=== PATIENT | female | born 1995 | race Caucasian/White ===

== ENCOUNTER 2021-03-20 09:06 | Inpatient (IN) | payer BC ==
[2021-04-09] MEDS ORDERED: Ondansetron 4 MG/2 ML SDV IVPUSH PRN (07:38)
[2021-04-09] MEDS ORDERED: Sodium Chloride 0.9% 10 ML Syringe FLUSH PRN (07:38)
[2021-04-09] MEDS ORDERED: Tranexamic Acid 1,000 MG in Sodium Chloride 0.9% 100 ML IV PRN (07:38)
[2021-04-09] MEDS ORDERED: Naloxone 2 MG/2 ML Syringe IVPUSH PRN (07:38)
[2021-04-09] MEDS ORDERED: Carboprost Tromethamine 250 MCG/1 ML Amp IM PRN (07:38)
[2021-04-09] MEDS ORDERED: Lidocaine 1% 30 ML SDV INJECT PRN (07:38)
[2021-04-09] MEDS ORDERED: Misoprostol 400 MCG (4 X 100 MCG TAB) RECTAL PRN (07:38)
[2021-04-09] MEDS ORDERED: fentaNYL 100 MCG/2 ML SDV IVPUSH PRN (07:38)
[2021-04-09] MEDS ORDERED: Methylergonovine 0.2 MG/1 ML Amp IM PRN (07:38)
[2021-04-09] MEDS ORDERED: Lactated Ringers 1,000 ML IV ONE (07:38)
[2021-04-09] MEDS ORDERED: Promethazine 25 MG/ML SDV IM PRN (07:38)
[2021-04-09] MEDS ORDERED: ePHEDrine 50 MG/ML SDV IVPUSH PRN (07:38)
[2021-04-09] MEDS ORDERED: Oxytocin/Normal Saline 30 UNIT/500 ML BAG IV SCH ×2 (07:45)
[2021-04-09] MEDS ORDERED: ceFAZolin 2 GM in Premix Bag 1 BAG IV ONE (08:00)
[2021-04-09] MEDS ORDERED: Misoprostol 50 MCG (1/2 of 100 MCG) Tab VAG ONE (08:30)
[2021-04-09] MEDS: ceFAZolin 1 GM in Sodium Chloride 0.9% 50 ML IV SCH (16:53)
[2021-04-09] MEDS ORDERED: hydrOXYzine HCl 25 MG Tab PO ONE (16:59)
[2021-04-09] MEDS: Lactated Ringers 1,000 ML IV SCH (17:13)
[2021-04-09] MEDS: Misoprostol 25 MCG (1/4 of 100 MCG) Tab VAG PRN (20:20)
[2021-04-10] MEDS: ceFAZolin 1 GM in Sodium Chloride 0.9% 50 ML IV SCH ×3 (00:17→16:19)
[2021-04-10] MEDS: Acetaminophen 325 MG Tab PO PRN (00:30)
[2021-04-10] MEDS: Misoprostol 25 MCG (1/4 of 100 MCG) Tab VAG PRN ×3 (00:32→09:23)
[2021-04-10] MEDS: Lactated Ringers 1,000 ML IV SCH ×2 (08:36→17:41)
--- NOTE | 2021-04-10 10:44 | PN ---
DATE: 04/10/2021 SUBJECTIVE: Day of induction #2 in a 25-year-old 1, para 0, now at 39- 3/7 weeks' gestation, admitted to the hospital for induction of labor secondary to factor V Leiden deficiency and on anticoagulation and needing to time stopping of the heparin with timing of delivery. She is group B strep positive and receiving Ancef for prophylaxis. She has anemia of and a personal history of DVT. Otherwise, has been unremarkable. Induction initiated yesterday with a 50 mcg dose of Cytotec and there were too many contractions to continue dosing every 4 hours, so we had to wait about 8 hours for the subsequent 25 mcg doses. She has had 4 total doses of Cytotec and is starting to make some cervical change. Nurses report that she also has some constipation and she was willing to drink some cranberry juice, but the patient has refused prune juice, enemas, and other constipation therapies. OBJECTIVE: Vital Signs: BP 124/64, pulse of 78, temperature is 96.9. Heart: Regular without murmur. Lungs: Clear bilaterally. Abdomen: Gravid. heart tones 125 beats per minute at baseline, reactive tracing. [place] showing no regular contractions at this time. Cervix 1+ cm, 70% effaced, anterior position now per nurse's report. Extremities: 1+ edema bilaterally also noted in the hands as well as the feet. ASSESSMENT: 1. 39-3/7 weeks' intrauterine . 2. High-risk due to factor V Leiden, on heparin. 3. Blood type O positive, rubella immune. 4. Group B strep positive, being treated with Ancef in labor. 5. Personal history of deep venous thrombosis. 6. Anemia of . PLAN: Continue subsequent Cytotec doses at this time. I will try to get her cervix more ripe and then get her going on some Pitocin and followed by artificial rupture of membranes with active labor management. Anticipating intrathecal when the time comes for pain relief and hoping for vaginal delivery. Discussed with the patient enemas or at least some warm prune juice with butter and milk of magnesia to help her have a bowel movement and will see she will be more open to that as the day goes on. [facility] /[id number] MTDIsauro
[2021-04-10] MEDS ORDERED: Nalbuphine 10 MG/1 ML Vial IM ONE (15:09)
[2021-04-10] MEDS ORDERED: EPINEPHrine 1 MG/1 ML Amp ONE ×2 (17:25→17:26)
[2021-04-10] MEDS ORDERED: Sodium Chloride 0.9% 20 ML SDV ONE (17:25)
[2021-04-10] MEDS ORDERED: fentaNYL 100 MCG/2 ML SDV ITHECAL ONE (17:25)
[2021-04-10] MEDS ORDERED: Sodium Bicarbonate 4.2% 2.5 MEQ/5 ML SDV ONE ×2 (17:25→17:27)
[2021-04-10] MEDS ORDERED: fentaNYL 100 MCG/2 ML SDV ONE (17:26)
--- NOTE | 2021-04-10 17:52 | PCM.SN.2 ---
- Free Text/Narrative Note: Intrathecal. Sitting position, sterile prep and drape. 1% lidocaine w bicarb for skinwheal to L3 L4 and L2 L3 interspace. Introducer, 24 ga pencan x 3. Pos CSF, neg heme, neg parasthesia at L2 L3 interspace. 0.1 ml pf 1:1000 epi, 20 mcg pf sufenta, 30 mcg pf fentanyl, 0.4 ml pf NS and 6 mg of 0.75% pf marcaine injected after CSF aspiration. Pt to L lateral position. Procedure time 1725 to 1800
[2021-04-10] MEDS ORDERED: Simethicone 80 MG Tab.Chew PO PRN (20:08)
[2021-04-10] MEDS ORDERED: Hydrocortisone 2.5% Crm 30 GM Tube TOP PRN (20:08)
[2021-04-10] MEDS ORDERED: Bisacodyl 10 MG Supp RECTAL PRN (20:08)
[2021-04-10] MEDS ORDERED: Benzocaine/Menthol 20%-0.5% Spray 56 GM Canister TOP PRN (20:08)
[2021-04-10] MEDS: Ibuprofen 800 MG Tab PO PRN (21:24)
[2021-04-10] MEDS: Docusate Sodium 100 MG Cap PO PRN (21:25)
--- NOTE | 2021-04-10 23:05 | DEL ---
DATE: 04/10/2021 PREPROCEDURE DIAGNOSES: 1. 39-3/7 weeks' intrauterine . 2. Factor V Leiden heterozygous. 3. History of deep venous thrombosis, on anticoagulation throughout . 4. Anemia of . 5. Varicella susceptible. 6. Group B strep positive. 7. Blood type O positive. 8. Rubella immune. 9. 1, para 0. POSTPROCEDURE DIAGNOSES: 1. 39-3/7 weeks' intrauterine . 2. 1, now para 1-0-0-1. 3. Status post spontaneous vaginal delivery. 4. Repair of right labial laceration. 5. Factor V Leiden heterozygous. 6. History of deep venous thrombosis, on anticoagulation throughout . 7. Anemia of . 8. Varicella susceptible. 9. Group B strep positive. 10.Blood type O positive. 11.Rubella immune. 12. 1, para 1-0-0-1. BRIEF HISTORY: 25-year-old female presented to the hospital yesterday for induction of labor, which was carried out with Cytotec, and then after reaching 3 cm artificial rupture of membranes performed. After about 4-1/2 hours of active stage I, she went on to spontaneous vaginal delivery with details as below. The patient did receive an intrathecal for pain management, and in labor she also had 1 dose of Nubain and 1 dose of fentanyl. She pushed for only about 13 minutes and placenta delivered within 5 minutes. The patient's labor was induced. Because of her factor V Leiden with history of personal DVT, it was preplanned that she would be on Lovenox throughout the . Heparin after 36 weeks and that was stopped 24 hours prior to initiating her induction and we have recommendations to restart Lovenox 6 to 12 hours and she needs to be continuing that until after her visit. Please see history and physical for full details. DELIVERY DETAILS: With the patient in dorsal lithotomy position, she delivered a viable male infant over intact perineum. Baby was dried, stimulated, and placed upon mother's abdomen, and then bulb suction was performed. After a delay, 3-vessel umbilical cord was doubly clamped and cut, and cord blood sample then obtained. Placenta delivered, inspected, and intact. There was some bloody fluid with delivery of the baby and with delivery of the placenta. There was a small amount of dark blood, possibly consistent with a small occult abruption, but unverified. Labia and vagina were inspected. There was a right- sided labial laceration approximately 3 cm in length and repaired with 3-0 Vicryl in usual fashion. Additional [id number] stitch was needed to ensure hemostasis. On the left side, there was a small labial laceration. It was hemostatic and did not need repair. ESTIMATED BLOOD LOSS: 300 mL. COMPLICATIONS: None. FINDINGS: Viable male infant delivered at 1931, score of 8 and 9. Weight 3585 g, 7 pounds 15 ounces. DISPOSITION: Mother and baby to stay in the room and initiate . [facility] /[id number] MTDD
[2021-04-11] MEDS: Enoxaparin 40 MG/0.4 ML Syringe SUBCUT SCH ×2 (08:00→19:36)
[2021-04-11] MEDS: Ferrous Sulfate 325 MG Tab PO SCH (08:14)
[2021-04-11] MEDS: Ibuprofen 800 MG Tab PO PRN ×2 (08:15→16:30)
[2021-04-11] MEDS: Acetaminophen 325 MG Tab PO PRN ×2 (08:15→12:13)
[2021-04-11] MEDS: Prenatal Multivitamin with Calcium/Folic Acid/Iron Tab PO SCH (08:23)
[2021-04-11] MEDS ORDERED: Witch Hazel Medicated Pads 100/Jar TOP PRN (08:33)
[2021-04-11] MEDS: Docusate Sodium 100 MG Cap PO PRN ×2 (08:43→19:36)
--- NOTE | 2021-04-11 17:06 | PN ---
DATE: 04/11/2021 TIME: The patient is seen at approximately 8 a.m. SUBJECTIVE: A 25-year-old 1 now para 1-0-0-1, status post vaginal delivery day #1. She is doing well, ambulating, tolerating regular diet, voiding without difficulties. Reports some soreness and pain down in the perineal area as would be expected with her repair, also some uterine cramping. seems to be going well and she and baby are bonding well. No chest pain. No shortness of breath. Persistent edema in the hands and feet. No erythema or tenderness noted. Lovenox has been ordered but not yet administered due to pharmacy not releasing the medication because they are awaiting a creatinine clearance which was drawn an hour and a half later than it was ordered, and I have asked the nurses to override the Lovenox so we can ensure that the patient gets it in a timely fashion. OBJECTIVE: Vital Signs: Temperature is 97.0, pulse 89, blood pressure 125/65, respiratory rate of 16, and O2 saturations 98% on room air. Heart: Regular without murmur. Lungs: Clear to auscultation bilaterally. Abdomen: Soft, nontender. Fundus firm and below the umbilicus. Extremities: 1+ edema. No erythema or tenderness noted. LABORATORY DATA: Hemoglobin is down to 11.4, platelets down to 148. Creatinine 0.95, creatinine clearance 89.7 and estimated GFR greater than 60. ASSESSMENT: 1. Status post vaginal delivery, day #1. 2. Heterozygous for factor V Leiden mutation. 3. Personal history of deep vein thrombosis. 4. On chronic anticoagulation throughout . 5. Anemia from blood loss. 6. Mild thrombocytopenia. 7. Varicella susceptible. PLAN: Continue routine cares. Watch for any sort of delayed bleeding or hemorrhage. Continue her Lovenox 40 mg subcu b.i.d. until her 6-week visit. Anticipate sec reporting consultant to assist with and discharge likely home tomorrow. We will be watching her platelets closely as well due to being on the Lovenox but this small decrease that she has had since admission from 186 down to 184 is not alarming. [facility] /[id number]
[2021-04-12] MEDS: Ibuprofen 800 MG Tab PO PRN (06:24)
[2021-04-12] MEDS: Docusate Sodium 100 MG Cap PO PRN (07:53)
[2021-04-12] MEDS: Ferrous Sulfate 325 MG Tab PO SCH (07:53)
[2021-04-12] MEDS: Prenatal Multivitamin with Calcium/Folic Acid/Iron Tab PO SCH ×2 (07:53→10:20)
[2021-04-12] MEDS: Enoxaparin 40 MG/0.4 ML Syringe SUBCUT SCH (07:55)
[2021-04-12 10:18] VITALS: BP 130/69; PULSE 102
[2021-04-12] MEDS ORDERED: Benzocaine/Menthol 20%-0.5% Spray 78 GM Cannister TOP PRN (10:28)
--- NOTE | 2021-04-13 13:11 | DISCH ---
ADMITTING DIAGNOSES: 1. 1, para 0, at 39-2/7 weeks by last menstrual period. 2. Factor V Leiden mutation, heterozygous. 3. Personal history of deep venous thrombosis. 4. Anemia of . 5. Varicella susceptible. 6. Group B strep positive. 7. Blood type O positive. 8. Rubella immune. DISCHARGE DIAGNOSES: 1. 1, para 0, at 39-3/7 weeks intrauterine based on last menstrual period. Now, a 1, para 1-0-0-1. 2. Factor V Leiden mutation, heterozygous. 3. Personal history of deep venous thrombosis. 4. Anemia of . 5. Varicella susceptible. 6. Group B strep positive was treated with Ancef in labor due to penicillin allergy. 7. Status post spontaneous vaginal delivery with right-sided labial laceration repair. 8. Blood type O positive. 9. Rubella immune. PROCEDURES PERFORMED: Induction of labor with Cytotec and artificial rupture of membranes, spontaneous vaginal delivery, intrathecal anesthesia, and labial laceration repair. BRIEF HISTORY: 25-year-old female with above-listed diagnoses brought into the hospital for elective induction at term due to factor V Leiden with a personal history of DVT requiring Lovenox, unfractionated heparin during the for prevention of clotting, and then each time delivery with cessation of her anticoagulants. Please see history and physical for full details. The patient's induction was started with Cytotec and the initial 50 mcg dose caused a little bit of hyperstimulation and subsequent 25 mcg doses were well tolerated. At 3 cm, artificial rupture of membranes was performed and labor progressed fairly readily thereafter with only about 4-1/2 to 6 hours of stage I. At stage II, she only pushed for 13 minutes. Stage III was only about 5 minutes. HOSPITAL COURSE: Has been good. After her initial long induction, the patient's delivery was fairly quick and then her recovery course was excellent. She is ambulating, tolerating regular diet, voiding without difficulty, had not had a bowel movement since delivery, but is breast-feeding well. No chest pain, no shortness of breath. No symptoms of blood clots. Has been restarted on her Lovenox and tolerating that well. Feels ready for discharge home today. DISCHARGE CONDITION: Good. PHYSICAL EXAMINATION: Vital Signs: Temperature is 98.0, pulse 102, blood pressure 130/64, respiratory rate of 18, and O2 saturations 99% on room air. Heart: Regular without murmur. Lungs: Clear to auscultation bilaterally. Abdomen: Soft, nontender. Fundus is firm and below the umbilicus. Extremities: Full range of motion. No edema, erythema, or tenderness noted. LABORATORY DATA: Final hemoglobin is 11.4, platelets are 148. FOLLOWUP: She will make a 6-week exam appointment when she brings her son in tomorrow for his first check. We will also check her platelets in about 1 to 2 weeks to make sure that she is tolerating the restart of Lovenox well. Anticipate this is very small drop in platelets this delivery and blood loss related. INSTRUCTIONS: Routine post vaginal delivery instructions were provided and her questions were answered. MEDICATIONS: Lovenox 40 mg subcutaneous daily, acetaminophen 650 mg every 4 to 6 hours as needed for pain, Colace 100 mg twice daily as needed for constipation, iron 325 mg daily, ibuprofen 800 mg every 8 hours as needed for pain. [facility] /[id number]
== END 2021-04-12 11:45 | disposition home or self-care (01) | DRG 560 ==
LOC: DL.OB 04-09 07:38 → EDSTATUS 04-09 07:49 → DL.OB 04-09 19:31 → OBSVTOIN 04-10 19:31
PROVIDERS: ADMIT Family Medicine; ATTEND Family Medicine
PROC: 10E0XZZ Delivery of Products of Conception, External Approach (ICD-10-PCS; principal; 2021-04-10)
PROC: 10907ZC Drainage of Amniotic Fluid, Therapeutic from Products of Conception, Via Natural or Artificial Opening (ICD-10-PCS; 2021-04-10)
PROC: 3E0P7VZ Introduction of Hormone into Female Reproductive, Via Natural or Artificial Opening (ICD-10-PCS; 2021-04-10)
PROC: 3E0R3BZ Introduction of Anesthetic Agent into Spinal Canal, Percutaneous Approach (ICD-10-PCS; 2021-04-10)
PROC: 00HU33Z Insertion of Infusion Device into Spinal Canal, Percutaneous Approach (ICD-10-PCS; 2021-04-10)
DX: O99.12 Other diseases of the blood and blood-forming organs and certain disorders involving the immune mechanism complicating childbirth (principal); D68.51 Activated protein C resistance; Z37.0 Single live birth; O99.02 Anemia complicating childbirth; O99.824 Streptococcus B carrier state complicating childbirth; Z20.822 Contact with and (suspected) exposure to COVID-19; Z86.718 Personal history of other venous thrombosis and embolism; O98.52 Other viral diseases complicating childbirth; B01.9 Varicella without complication; D69.6 Thrombocytopenia, unspecified; Z79.01 Long term (current) use of anticoagulants; D50.0 Iron deficiency anemia secondary to blood loss (chronic); Z3A.39 39 weeks gestation of pregnancy
CPT/HCPCS: 01967; 36415; 51701; 59409; 82565; 85027; A9270-GY; J0171; J0690; J1650; J2300; J2405; J2590; J3010; J7120; U0002

== ENCOUNTER 2023-07-24 05:53 | Emergency (ER) | payer BC ==
[2023-07-24 06:10] VITALS: BP 130/81
[2023-07-24 06:15] VITALS: PULSE 88
[2023-07-24 06:38] LABS: APPEARANCE,URINE CLEAR (CLEAR); BILIRUBIN,URINE NEGATIVE (NEGATIVE); COLOR,URINE YELLOW (YELLOW); GLUCOSE,URINE NEGATIVE (NEGATIVE); KETONES,URINE NEGATIVE (NEGATIVE); LEUKOCYTE ESTERASE,URINE NEGATIVE (NEGATIVE); NITRITE,URINE NEGATIVE (NEGATIVE); OCCULT BLOOD,URINE NEGATIVE (NEGATIVE); PROTEIN,URINE NEGATIVE (NEGATIVE); UROBILINOGEN,URINE 0.2 mg/dL (0.2-1.0)
[2023-07-24 06:42] LABS: AMPHETAMINES,URINE NEGATIVE (NEGATIVE); BARBITURATES,URINE NEGATIVE (NEGATIVE); BENZODIAZEPINE,URINE NEGATIVE (NEGATIVE); MDMA (ECSTASY), URINE NEGATIVE (NEGATIVE); METHADONE,URINE NEGATIVE (NEGATIVE); METHAMPHETAMINES,URINE NEGATIVE (NEGATIVE); OPIATES,URINE NEGATIVE (NEGATIVE); OXYCODONE,URINE NEGATIVE (NEGATIVE); PHENCYCLIDINE,URINE NEGATIVE (NEGATIVE); TCA,URINE NEGATIVE (NEGATIVE)
[2023-07-24] MEDS ORDERED: Take Home: Lidocaine 2% Viscous Solution 15 ML UD, 2 Cup Pack PO ONE (06:44)
[2023-07-24] MEDS ORDERED: Aluminum Hydroxide/Magnesium Hydroxide/Simethicone Susp 30 ML Cup PO ONE (06:44)
[2023-07-24] MEDS ORDERED: Lactated Ringers 1,000 ML IV ONE (06:48)
[2023-07-24 06:59] LABS: BASOPHILS PERCENT AUTO 0.2 % (0.0-1.0); EOSINOPHILS PERCENT AUTO 2.2 % (1.0-3.0); HEMATOCRIT 39.1 % (37.0-47.0); HEMOGLOBIN 13.2 g/dL (12.0-16.0); LYMPHOCYTES PERCENT AUTO 36.7 % (20.5-50.1); MEAN CORPUSCULAR HEMOGLOBIN 30.7 pg (27.0-34.0); MEAN CORPUSCULAR HGB CONC 33.8 g/dL (33.0-35.0); MEAN CORPUSCULAR VOLUME 90.9 fL (80-100); NEUTROPHILS PERCENT AUTO 52.9 % (42.2-75.2); PLATELET COUNT,PLT 149 10^3/uL (150-450)
[2023-07-24 07:14] LABS: HCG QUALITATIVE,SERUM NEGATIVE (NEGATIVE)
[2023-07-24 07:18] LABS: A/G RATIO 1.1; ALANINE AMINOTRANSFERASE,ALT 17 U/L (14-59); ALBUMIN 3.7 g/dL (3.4-5.0); ALKALINE PHOSPHATASE 71 U/L (46-116); AMYLASE 44 U/L (25-115); ANION GAP 14.6 mEq/L (7-13); ASPARTATE AMNIOTRANSFERASE,AST 14 U/L (15-37); BLOOD UREA NITROGEN,BUN 13 mg/dL (7-18); BUN/CREATININE RATIO 15.7 (No establ ref range); C-REACTIVE PROTEIN 0.61 ng/dL (<=0.30); CALCIUM 8.5 mg/dL (8.5-10.1); CARBON DIOXIDE,CO2 28 mmol/L (21-32); CHLORIDE,CL 101 mmol/L (98-107); CREATININE 0.83 mg/dL (0.55-1.02); EST CRCL DRUG DOSING (CG) 99.98 mL/min; ESTIMATED GFR 97 mL/min (>=60); ETHANOL BLOOD MEDICAL < 3 mg/dL (0); GLUCOSE RANDOM 82 mg/dL (70-99); LACTIC ACID 0.9 mmol/L (0.4-2.0); LIPASE 32 U/L (16-77); POTASSIUM,K 3.6 mmol/L (3.5-5.1); PROTEIN TOTAL,TP 7.2 g/dL (6.4-8.2); SODIUM,NA 140 mmol/L (136-145)
[2023-07-24 07:31] LABS: SEDIMENTATION RATE MANUAL 6 mm/hr (0-20)
[2023-07-24 07:38] LABS: PROTHROMBIN TIME 9.9 SEC (9.0-12.0); PTT,PARTIAL THROMBOPLSTIN TIME 27.2 SEC (22.0-34.0)
[2023-07-24] MEDS ORDERED: Iopamidol 755 Mg/ML 100 ML Bottle IVPUSH ONE (07:49)
[2023-07-24] MEDS ORDERED: Acetaminophen 500 MG Tab PO ONE (08:43)
== END 2023-07-24 09:40 | disposition home or self-care (01) ==
LOC: DL.ED 05:53
DX: K76.89 Other specified diseases of liver (principal); K83.8 Other specified diseases of biliary tract; Z86.16 Personal history of COVID-19; Z88.0 Allergy status to penicillin; Z79.899 Other long term (current) drug therapy
CPT/HCPCS: 36415; 71275; 74177; 80053; 80305; 80307; 81003; 82150; 82272; 83605; 83690; 83735; 84484; 84703; 85025; 85379; 85610; 85651; 85730; 86140; 87635; 96360; 99284; A9270; J7120; Q9967; U0002

== ENCOUNTER 2025-06-14 00:04 | Inpatient (IN) | payer BC ==
[~2025-06-14 00:04] MED LIST: Carboprost Tromethamine 250 MCG/1 ML Amp IM PRN; Lactated Ringers 1,000 ML IV SCH; Misoprostol 25 MCG (1/4 of 100 MCG) Tab PO SCH; Ondansetron 4 MG/2 ML SDV IVPUSH PRN; Oxytocin/Lactated Ringers 30 UNIT/500 ML BAG IV SCH; Sodium Chloride 0.9% 10 ML Syringe FLUSH PRN; fentaNYL 100 MCG/2 ML SDV IVPUSH PRN
[2025-06-14 00:54] LABS: PLATELET COUNT,PLT 178.0 10^3/uL (150-450); RED BLOOD CELL COUNT 3.72 10^6/uL (4.2-5.4); WHITE BLOOD CELL COUNT,WBC 9.0 10^3/uL (5.0-10.0)
[2025-06-14] MEDS: Misoprostol 50 MCG (1/2 of 100 MCG) Tab PO SCH (00:57)
[2025-06-14] MEDS: Lactated Ringers 1,000 ML IV ONE (07:14)
[2025-06-14] MEDS ORDERED: ePHEDrine 50 MG/ML SDV IVPUSH PRN (08:24)
[2025-06-14] MEDS ORDERED: Ropivacaine 200 MG in Premix Bag 1 BAG EPIDUR SCH (08:30)
[2025-06-14] MEDS: Oxytocin/Normal Saline 30 UNIT/500 ML BAG IV SCH (09:56)
[2025-06-14] MEDS: Silver Nitrate Applicator Each TOP ONE (12:30)
[2025-06-14] MEDS ORDERED: Oxytocin 10 Units/1 ML SDV IM PRN (12:52)
[2025-06-14] MEDS ORDERED: Witch Hazel Medicated Pads 100/Jar TOP PRN (12:52)
[2025-06-14] MEDS ORDERED: Sodium Chloride 0.9% 10 ML Syringe FLUSH PRN (12:52)
[2025-06-14] MEDS ORDERED: Carboprost Tromethamine 250 MCG/1 ML Amp IM PRN (12:52)
[2025-06-14] MEDS ORDERED: Benzocaine/Menthol 20%-0.5% Spray 78 GM Cannister TOP PRN (12:52)
[2025-06-14 16:06] LABS: CREATININE 0.59 mg/dL (0.55-1.02); EST CRCL DRUG DOSING (CG) 139.37 mL/min
[2025-06-14 16:07] LABS: ESTIMATED GFR 123.0 mL/min (>=60)
[2025-06-15 06:38] LABS: PLATELET COUNT,PLT 157.0 10^3/uL (150-450); RED BLOOD CELL COUNT 3.73 10^6/uL (4.2-5.4); WHITE BLOOD CELL COUNT,WBC 8.9 10^3/uL (5.0-10.0)
[2025-06-15] MEDS: Prenatal Multivitamin with Calcium/Folic Acid/Iron Tab PO SCH (08:33)
[2025-06-15 08:57] VITALS: BP 122/68; PULSE 72
[2025-06-15] MEDS ORDERED: Ropivacaine 100 ML EPIDUR ONE (13:39)
[2025-06-15] MEDS ORDERED: fentaNYL 100 MCG/2 ML SDV EPIDUR ONE (13:39)
== END 2025-06-15 13:40 | disposition home or self-care (01) | DRG 560 ==
LOC: DL.OB 00:04 → OBSVTOIN 12:16
PROVIDERS: ADMIT Family Medicine; ATTEND Family Medicine
PROC: 10E0XZZ Delivery of Products of Conception, External Approach (ICD-10-PCS; principal; 2025-06-14)
PROC: 10907ZC Drainage of Amniotic Fluid, Therapeutic from Products of Conception, Via Natural or Artificial Opening (ICD-10-PCS; 2025-06-14)
PROC: 4A1HXCZ Monitoring of Products of Conception, Cardiac Rate, External Approach (ICD-10-PCS; 2025-06-14)
PROC: 3E0DXGC Introduction of Other Therapeutic Substance into Mouth and Pharynx, External Approach (ICD-10-PCS; 2025-06-14)
PROC: 3E0R3BZ Introduction of Anesthetic Agent into Spinal Canal, Percutaneous Approach (ICD-10-PCS; 2025-06-14)
PROC: 00HU33Z Insertion of Infusion Device into Spinal Canal, Percutaneous Approach (ICD-10-PCS; 2025-06-14)
DX: O99.12 Other diseases of the blood and blood-forming organs and certain disorders involving the immune mechanism complicating childbirth (principal); O99.824 Streptococcus B carrier state complicating childbirth; D68.51 Activated protein C resistance; Z3A.39 39 weeks gestation of pregnancy; Z37.0 Single live birth; M05.9 Rheumatoid arthritis with rheumatoid factor, unspecified; O99.892 Other specified diseases and conditions complicating childbirth; O69.81X0 Labor and delivery complicated by cord around neck, without compression, not applicable or unspecified
CPT/HCPCS: 36415; 51702; 59409; 82565; 85027; A9270-GY; J0690; J1650; J2590; J2795; J3010; J7120